=== PATIENT | male | born 1955 | race Caucasian/White ===

== ENCOUNTER 2017-12-24 10:01 | Day surgery (SDC) | payer OTHER ==
[2017-12-23 13:05] VITALS: BMI 20.5
--- NOTE | 2017-12-24 10:54 | HP ---
Admitting History and Physical - Admission Chief Complaint: here for peritoneal dialysis catheter placement History of Present Illness: The patient is a 62 yo male with a history of ESRD on HD. His last session was yesterday. He has no complaints of CP/SOB and denies any fevers. The plan is to begin peritoneal dialysis and he will have a catheter placed today. He has no abdominal pain complaints. History Source: Patient Limitations to Obtaining History: No Limitations - Past Medical History Cardiovascular: Yes: HTN. No: Deep Vein Thrombosis Pulmonary: No: Asthma, Sleep Apnea Gastrointestinal: Yes: GERD. No: Constipation Renal/: Yes: Renal Failure Heme/Onc: No: Bleeding Disorder Rheumatology: Yes: Gout (which has improved since he started HD) - Past Surgical History Additional Past Surgical History: permacath placement 3 months ago - Smoking History Smoking history: Never smoked - Alcohol/Substance Use Hx Alcohol Use: No Home Medications - Allergies Allergies/Adverse Reactions: Allergies Allergy/AdvReac Type Severity Reaction Status Date / Time No Known Drug Allergies Allergy Verified 12/24/17 11:00 - Home Medications Home Medications: Ambulatory Orders Amlodipine Besylate [Norvasc -] 5 mg PO HS 12/23/17 B Complex W-C No.20/Folic Acid [Renal Caps Softgel] 1 mg PO DAILY 12/23/17 Colchicine 0.6 mg PO PRN PRN 12/23/17 Review of Systems - Review of Systems Constitutional: denies: Chills, Fever HENT: denies: Gingival Bleeding Neck: denies: Decreased ROM, Pain on Movement Cardiovascular: reports: Palpitations. 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 denies: Burning, Dysuria Musculoskeletal: denies: Decreased ROM, Extremity Pain, Muscle Weakness Neurological: denies: Headache, Numbness, Parasthesia Hematology/Lymphatic: denies: Easily Bruised, Excessive Bleeding Physical Examination Constitutional: Yes: Calm, Thin HENT: Yes: WNL, Atraumatic, Normocephalic Neck: Yes: WNL, Supple, Trachea Midline Cardiovascular: Yes: WNL, Regular Rate and Rhythm Respiratory: Yes: WNL, Regular, CTA Bilaterally Gastrointestinal: Yes: WNL, Normal Bowel Sounds, Soft Musculoskeletal: No: Joint Swelling Extremities: No: Calf Tenderness, Deformity Edema: No Peripheral Pulses WNL: Yes Peripheral Pulses: Left Doralis Pedis: 2+, Right Dorsalis Pedis: 2+ Neurological: Yes: WNL, Alert, Oriented ...Motor Strength: WNL, LUE, LLE, RUE, RLE Psychiatric: Yes: WNL, Alert, Oriented Labs: CBC, BMP 12/24/17 10:12 Imaging - Results EKG: Report Reviewed, Image Reviewed (12/18/17 NSR with rate of 89) Other: Report Reviewed (Mycardial perfusion study 12/10/16-EF 58% without any evidence of coronary lesion/scarring.) Problem List - Problems (1) ESRD (end stage renal disease) on dialysis Assessment/Plan: Plan for placement of peritoneal catheter today DVT ppx with SCDs/early ambulation IV antiobiotics prior to surgical incision pt seen by his medical doctor on 12/18/17 and is cleared for his surgical procedure with low risk. Code(s): N18.6 - END STAGE RENAL DISEASE; Z99.2 - DEPENDENCE ON RENAL DIALYSIS
[2017-12-24 11:07] VITALS: TEMP 97.9
[2017-12-24] MEDS ORDERED: LIDOCAINE HCL/PF 2% SDV 5ML VIAL ONE (11:42)
[2017-12-24] MEDS ORDERED: ceFAZolin SODIUM 1 GM VIAL ONE (11:42)
[2017-12-24] MEDS ORDERED: PROPOFOL 20 ML ONE (11:42)
[2017-12-24] MEDS ORDERED: MIDAZOLAM HCL 2 MG/2 ML SINGLE DOSE VIAL ONE (11:42)
[2017-12-24] MEDS ORDERED: ceFAZolin SODIUM 1 GM VIAL IVPB ONE (12:25)
[2017-12-24] MEDS ORDERED: BUPIVACAINE HCL/PF 0.5% (5MG/ML) 10 ML VIAL IJ ONE (12:33)
[2017-12-24] MEDS ORDERED: DEXAMETHASONE SOD PHOSPHATE 4 MG/1 ML VIAL ONE (12:36)
[2017-12-24] MEDS ORDERED: NEOSTIGMINE METHYLSULFATE 0.5 MG/ML - 10 ML MDV ONE (12:36)
[2017-12-24] MEDS ORDERED: GLYCOPYRROLATE 0.2 MG/1 ML VIAL ONE (12:36)
[2017-12-24] MEDS ORDERED: ACETAMINOPHEN 325 MG TABLET (FP) PO PRN ×3 (13:15→13:33)
--- NOTE | 2017-12-24 13:15 | OP ---
Operative Note - Note: Operative Date: 12/24/17 Pre-Operative Diagnosis: ESRD on HD Operation: Laparoscopy, omentopexy, placement of peritoneal dialysis catheter Findings: No adhesions, omentum in pelvis Implants: Double cuff tenckhoff Post-Operative Diagnosis: Same as Pre-op Surgeon: Gibran Reyes Anesthesiologist/[employer] CHAIR: Anusha Restrepo Anesthesia: General Estimated Blood Loss (mls): 5
[2017-12-24] MEDS ORDERED: ONDANSETRON 4 MG/2 ML VIAL IVPUSH PRN (13:28)
[2017-12-24] MEDS ORDERED: oxyCODONE HCL 5 MG TABLET PO PRN ×3 (13:28→13:33)
[2017-12-24] MEDS ORDERED: SODIUM CHLORIDE 1,000 ML IV SCH (13:30)
[2017-12-24] MEDS ORDERED: oxyCODONE HCL 5 MG TABLET ONE ×2 (14:34→16:02)
[2017-12-24 17:19] VITALS: BP 146/80; PULSE 85
--- NOTE | 2018-01-01 17:46 | OP ---
DATE OF OPERATION: 12/24/2017 SURGEON: Gibran Reyes MD PROCEDURE: Placement of peritoneal dialysis catheter, laparoscopy, omentopexy. PREOPERATIVE DIAGNOSIS: Renal failure. POSTOPERATIVE DIAGNOSIS: Renal failure. ANESTHESIA: General. ANESTHESIOLOGIST: Anusha Restrepo MD OPERATIVE FINDINGS: There were no intraabdominal adhesions. The greater omentum was filling the pelvis. OPERATIVE PROCEDURE: Following routine patient identification, general anesthesia was induced. The abdomen was prepped with ChloraPrep. Timeout was performed. Pneumoperitoneum was established with carbon dioxide gas using a Veress needle through the umbilicus. A 5-mm Opti-port was then placed under direct vision in the upper midline. Due to the omentum filling the pelvis, decision was made to perform omentopexy. A second 5-mm port was placed in the left abdominal wall under direct vision. Using non-crushing graspers, the omentum was elevated up into the upper abdomen. A 2-0 Prolene suture was then advanced on a Mukul needle through the abdominal wall and used to secure the omentum to this point. The suture was pulled out using a suture passer and tied securely. Incision was then made above and to the left of the umbilicus, and an 8-mm bladeless trocar advanced to the underside of the peritoneum. It was then directed towards the pelvis where it entered peritoneal cavity at the top of the true pelvis. A double-cuff, curled swan neck Tenckhoff catheter was then passed through the introducer and deployed in the pelvis. The inner cuff was left just under the fascia. The port was removed. The end of the catheter was attached to a curved metal tunneler which was passed to the subcutaneous plane to exit in the right abdominal wall at the previously chosen site. The Luer lock adapter was attached to the catheter, and 1 L of saline was run into the peritoneal cavity under gravity in less than 3 minutes. The bag was dropped to the floor, and approximately 700 mL were drained. All ports were then removed. The skin incisions were closed with interrupted sutures of 3-0 Vicryl in subcutaneous tissues and running subcuticular sutures of 4-0 Biosyn on the skin. Dermabond glue was applied as a dressing, and the catheter was secured to the skin with a Tegaderm and a large ABD pad to cover. Patient was extubated and taken to the recovery room in stable condition. Walter MENDOZA/[id number]
== END 2017-12-24 17:00 | disposition home or self-care (01) ==
LOC: JASU-SURG 10:01
PROVIDERS: ATTEND Surgery
PROC: 0WHG43Z Insertion of Infusion Device into Peritoneal Cavity, Percutaneous Endoscopic Approach (ICD-10-PCS; principal; 2017-12-24 11:30)
DX: I12.0 Hypertensive chronic kidney disease with stage 5 chronic kidney disease or end stage renal disease (principal); N18.6 End stage renal disease; Z99.2 Dependence on renal dialysis
CPT/HCPCS: 36415; 84132; 94760